=== PATIENT | female | born 1940 | race Caucasian/White ===

== ENCOUNTER 2016-05-20 13:06 | Observation (INO) | payer MEDICARE, OTHER ==
[2016-05-20] MEDS ORDERED: ONDANSETRON 4 MG/2 ML VIAL ONE (13:53)
[2016-05-20] MEDS ORDERED: HYDROmorphone 1 MG/ML SYRINGE ONE (13:53)
[2016-05-20] MEDS ORDERED: SODIUM CHLORIDE 0.9% 1,000 ML IV ONE (13:58)
[2016-05-20] MEDS ORDERED: HYDROmorphone 1 MG/ML SYRINGE IVP STA (14:06)
[2016-05-20] MEDS ORDERED: ONDANSETRON 4 MG/2 ML VIAL IVP STA (14:06)
[2016-05-20] MEDS: IOPAMIDOL-300 100 ML VIAL IVP ONE (14:30)
[2016-05-20] MEDS ORDERED: LIDOCAINE JELLY 2% 5 ML TUBE TOP ONE (18:17)
[2016-05-20] MEDS ORDERED: BENZOCAINE/TETRACAINE/BUTAMBEN SPRAY 56 GM ONE (18:17)
[2016-05-20] MEDS ORDERED: ONDANSETRON 4 MG/2 ML VIAL IVP PRN (19:07)
[2016-05-20] MEDS: HYDROmorphone 1 MG/ML SYRINGE IVP PRN (20:07)
[2016-05-20] MEDS: SODIUM CHLORIDE FLUSH 0.9% 10 ML SYRINGE IVP SCH (20:12)
[2016-05-20] MEDS: LACTATED RINGERS 1,000 ML IV SCH (20:15)
[2016-05-20] MEDS: LORazepam 2 MG/ML SYRINGE IVP PRN (20:34)
[2016-05-21] MEDS: HYDROmorphone 1 MG/ML SYRINGE IVP PRN ×3 (01:17→20:32)
[2016-05-21] MEDS: LACTATED RINGERS 1,000 ML IV SCH ×2 (02:38→19:15)
[2016-05-21] MEDS: LORazepam 2 MG/ML SYRINGE IVP PRN ×2 (02:44→22:09)
[2016-05-21] MEDS: PANTOPRAZOLE 40 MG VIAL IVP SCH (06:11)
[2016-05-21] MEDS: SODIUM CHLORIDE FLUSH 0.9% 10 ML SYRINGE IVP SCH ×3 (06:12→19:16)
[2016-05-21] MEDS ORDERED: IOPAMIDOL-300 100 ML VIAL IVP ONE (09:30)
[2016-05-21] MEDS ORDERED: IOPAMIDOL-300 50 ML VIAL PO ONE (09:35)
[2016-05-21] MEDS: IOPAMIDOL-300 100 ML VIAL IVP ONE (09:36)
[2016-05-21] MEDS: SODIUM CHLORIDE FLUSH 0.9% 10 ML SYRINGE IVP PRN ×2 (09:46→20:33)
[2016-05-21] MEDS ORDERED: LACTATED RINGERS 1,000 ML IV ONE ×2 (11:13→12:20)
[2016-05-21] MEDS ORDERED: ACETAMINOPHEN 1,000 MG/100 ML VIAL IV ONE (11:15)
[2016-05-21] MEDS ORDERED: MIDAZOLAM 2 MG/2 ML VIAL IVP ONE (11:15)
[2016-05-21] MEDS ORDERED: fentaNYL 100 MCG/2 ML VIAL IVP ONE (11:15)
[2016-05-21] MEDS ORDERED: LIDOCAINE-MPF 2% 5 ML VIAL IM ONE (11:15)
[2016-05-21] MEDS ORDERED: ROCURONIUM 50 MG/5 ML VIAL IVP ONE (11:15)
[2016-05-21] MEDS ORDERED: NEOSTIGMINE 1 MG/1 ML 10 ML MDV IVP ONE (11:15)
[2016-05-21] MEDS ORDERED: DEXAMETHASONE 4 MG/ML VIAL IVP ONE (11:15)
[2016-05-21] MEDS ORDERED: ONDANSETRON 4 MG/2 ML VIAL IVP ONE (11:15)
[2016-05-21] MEDS ORDERED: PROPOFOL 200 MG/20 ML VIAL IVP ONE (11:15)
[2016-05-21] MEDS ORDERED: GLYCOPYRROLATE 1 MG/5 ML VIAL IVP ONE (11:15)
[2016-05-21] MEDS ORDERED: SUCCINYLCHOLINE 200 MG/10 ML VIAL IVP ONE (11:15)
[2016-05-21] MEDS ORDERED: BUPIVACAINE 0.25% PF 10 ML VIAL SUBQ ONE ×2 (11:35→12:26)
[2016-05-21] MEDS ORDERED: LIDOCAINE MPF 1%-EPI 1:200000 30 ML VIAL SUBQ ONE ×2 (11:35→12:26)
[2016-05-21] MEDS ORDERED: HYDROmorphone 1 MG/ML SYRINGE ONE (12:44)
[2016-05-21] MEDS ORDERED: A & D OINTMENT 5 GM PACKET TOP ONE (17:02)
[2016-05-22] MEDS: SODIUM CHLORIDE FLUSH 0.9% 10 ML SYRINGE IVP SCH ×3 (03:00→19:50)
[2016-05-22] MEDS: LACTATED RINGERS 1,000 ML IV SCH ×2 (03:00→09:19)
[2016-05-22] MEDS: HYDROmorphone 1 MG/ML SYRINGE IVP PRN (03:14)
[2016-05-22] MEDS: PANTOPRAZOLE 40 MG VIAL IVP SCH (07:01)
[2016-05-22] MEDS ORDERED: KETOROLAC 15 MG/ML VIAL IVP PRN (08:55)
[2016-05-22] MEDS ORDERED: ACETAMINOPHEN 1,000 MG/100 ML 100 ML IV PRN (08:56)
[2016-05-22] MEDS: ENOXAPARIN 40 MG/0.4 ML SYRINGE SUBQ SCH (09:17)
[2016-05-22] MEDS: D5.45NS W/20 MEQ KCL 1,000 ML IV SCH ×2 (09:17→19:44)
[2016-05-22] MEDS: SODIUM CHLORIDE FLUSH 0.9% 10 ML SYRINGE IVP PRN (09:37)
[2016-05-22] MEDS ORDERED: oxyCOD/ACETAMIN 5 MG/325 MG TABLET PO PRN ×2 (20:20→20:37)
[2016-05-22] MEDS ORDERED: LORazepam 0.5 MG TABLET PO PRN (20:33)
[2016-05-23] MEDS: SODIUM CHLORIDE FLUSH 0.9% 10 ML SYRINGE IVP SCH (04:38)
[2016-05-23] MEDS: PANTOPRAZOLE 40 MG VIAL IVP SCH (07:20)
[2016-05-23] MEDS: D5.45NS W/20 MEQ KCL 1,000 ML IV SCH ×2 (10:13→10:15)
[2016-05-23] MEDS: ENOXAPARIN 40 MG/0.4 ML SYRINGE SUBQ SCH (10:13)
== END 2016-05-23 10:54 | disposition home or self-care (01) ==
PROC: 0DN84ZZ Release Small Intestine, Percutaneous Endoscopic Approach (ICD-10-PCS; principal; 2016-05-21 11:00)
DX: K56.5 Intestinal adhesions [bands] with obstruction (postinfection) (principal); M54.9 Dorsalgia, unspecified; G89.29 Other chronic pain; F41.9 Anxiety disorder, unspecified; F32.9 Major depressive disorder, single episode, unspecified; Z79.891 Long term (current) use of opiate analgesic; Z79.899 Other long term (current) drug therapy; Z87.891 Personal history of nicotine dependence; K21.9 Gastro-esophageal reflux disease without esophagitis; K44.9 Diaphragmatic hernia without obstruction or gangrene; M19.90 Unspecified osteoarthritis, unspecified site; Z85.51 Personal history of malignant neoplasm of bladder
CPT/HCPCS: 36415; 44180; 74174; 74177; 80048; 80053; 81003; 83605; 83615; 83690; 84484; 85025; 86850; 86900; 86901; 96361; 96372; 96374; 96375; 96376; 99285; A9270; G0378; J0131; J1170; J1650; J2060; J3490; J7120; Q9967

== ENCOUNTER 2016-09-20 08:36 | Outpatient (CLI) | payer MEDICARE, OTHER | END 2016-09-20 08:37 | disposition home or self-care (01) | LOC: RT 08:36 | PROVIDERS: ATTEND Student in an Organized Health Care Education/Training Program | DX: Z01.810 Encounter for preprocedural cardiovascular examination (principal); K43.9 Ventral hernia without obstruction or gangrene | CPT/HCPCS: 93005 ==

== ENCOUNTER 2016-09-24 06:12 | Inpatient (IN) | payer MEDICARE, OTHER ==
[2016-09-24] MEDS ORDERED: LACTATED RINGERS 1,000 ML IV ONE ×2 (06:41→10:10)
[2016-09-24] MEDS ORDERED: BUPIVACAINE 0.5% PF 30 ML VIAL INFIL ONE ×2 (07:59→09:30)
[2016-09-24] MEDS ORDERED: ePHEDrine 50 MG/ML VIAL IVP ONE (08:30)
[2016-09-24] MEDS ORDERED: MIDAZOLAM 2 MG/2 ML VIAL IVP ONE (08:30)
[2016-09-24] MEDS ORDERED: PROPOFOL 200 MG/20 ML VIAL IVP ONE (08:30)
[2016-09-24] MEDS ORDERED: fentaNYL 100 MCG/2 ML VIAL IVP ONE (08:30)
[2016-09-24] MEDS ORDERED: GLYCOPYRROLATE 1 MG/5 ML VIAL IVP ONE (08:30)
[2016-09-24] MEDS ORDERED: ROCURONIUM 50 MG/5 ML VIAL IVP ONE (08:30)
[2016-09-24] MEDS ORDERED: PHENYLEPHRINE 50 MG/5 ML VIAL IV ONE (08:30)
[2016-09-24] MEDS ORDERED: KETAMINE 500 MG/10 ML VIAL IVP ONE (08:30)
[2016-09-24] MEDS ORDERED: LIDOCAINE-PF 2% 10 ML AMP SUBQ ONE (08:30)
[2016-09-24] MEDS ORDERED: DEXAMETHASONE 4 MG/ML VIAL IVP ONE (08:30)
[2016-09-24] MEDS ORDERED: ceFAZolin 1 GM VIAL IV ONE (08:30)
[2016-09-24] MEDS ORDERED: ONDANSETRON 4 MG/2 ML VIAL IVP ONE (08:30)
[2016-09-24] MEDS ORDERED: SUCCINYLCHOLINE 200 MG/10 ML VIAL IVP ONE (08:30)
[2016-09-24] MEDS ORDERED: BUPIVACAINE 0.5%-EPI 1:200000 PF 30 ML VIAL SUBQ ONE (09:30)
[2016-09-24] MEDS ORDERED: MORPHINE 2 MG/ML SYRINGE IVP PRN (09:33)
[2016-09-24] MEDS ORDERED: SODIUM CHLORIDE FLUSH 0.9% 10 ML SYRINGE IVP PRN (09:33)
[2016-09-24] MEDS ORDERED: ONDANSETRON 4 MG/2 ML VIAL IVP PRN (09:33)
[2016-09-24] MEDS ORDERED: LORazepam 0.5 MG TABLET PO PRN (09:36)
[2016-09-24] MEDS ORDERED: busPIRone 5 MG TABLET PO PRN (09:36)
[2016-09-24] MEDS: fentaNYL 100 MCG/2 ML VIAL ONE ×3 (09:39→09:55)
[2016-09-24] MEDS ORDERED: fentaNYL 100 MCG/2 ML VIAL ONE (09:53)
[2016-09-24] MEDS: LACTATED RINGERS 1,000 ML IV SCH ×2 (11:05→19:27)
[2016-09-24] MEDS: ACETAMINOPHEN 1,000 MG/100 ML 100 ML IV SCH ×3 (11:05→21:39)
--- NOTE | 2016-09-24 12:14 | OPERATIVE REPORT ---
DATE OF SURGERY: 09/24/2016 00:00:00 PREOPERATIVE DIAGNOSIS: Ventral hernia. POSTOPERATIVE DIAGNOSIS: Ventral hernia. NAME OF PROCEDURE: Ventral hernia repair with mesh. SURGEON: Sondra Aiken MD INDICATION FOR PROCEDURE: This is a 75-year-old female who underwent laparoscopic lysis of adhesions from a small-bowel obstruction several months ago. She subsequently developed a ventral hernia and is now being taken for elective ventral hernia repair. FINDINGS: After obtaining informed consent from the patient, she was brought into the operating room and positioned on the operating table in the supine position, taking note of pressure points. She was administered perioperative antibiotics. She was prepped and draped in usual sterile fashion and a time-out was taken according to protocol. A periumbilical incision was created and deepened down towards the hernia sac. The hernia sac was circumferentially dissected from the surrounding fascia. The skin incision had to be extended to approximately 6 cm in order to dissect down to the large ventral hernia. Once complete circumferential dissection was performed down to the level of the fascia and the hernia sac was opened, excess hernia sac was removed. The underlying omentum stuck to the hernia sac was removed carefully with electrocautery. The hernia defect was measured to be 6 cm. A 10 x 15 cm composite Bard mesh was chosen. This was inserted into the abdominal cavity and sutured to the fascia with 8 circumferential #1 Prolene interrupted sutures. The fascia was then closed over the repair with interrupted 0 Prolene sutures. The subcutaneous tissue was closed with 3-0 Vicryl, and skin was closed with 4- 0 Monocryl, and 60 mL of local anesthetic was utilized. ESTIMATED BLOOD LOSS: 10 mL. COMPLICATIONS: None. SPECIMENS: None. JOB #: [id number] EXT JOB #:[id number] MTDTawana
[2016-09-24] MEDS: HYDROcod/ACETAM 5/325 MG TABLET PO PRN ×2 (14:00→21:38)
[2016-09-24] MEDS: SODIUM CHLORIDE FLUSH 0.9% 10 ML SYRINGE IVP SCH ×2 (14:02→22:42)
[2016-09-24] MEDS: KETOROLAC 30 MG/ML VIAL IVP PRN (20:47)
[2016-09-25] MEDS: HYDROcod/ACETAM 5/325 MG TABLET PO PRN ×2 (01:54→06:24)
[2016-09-25] MEDS: ACETAMINOPHEN 1,000 MG/100 ML 100 ML IV SCH (04:47)
[2016-09-25] MEDS: LACTATED RINGERS 1,000 ML IV SCH (04:47)
[2016-09-25] MEDS: SODIUM CHLORIDE FLUSH 0.9% 10 ML SYRINGE IVP SCH (05:13)
[2016-09-25] MEDS: KETOROLAC 30 MG/ML VIAL IVP PRN (08:24)
[2016-09-25 08:27] VITALS: BP 144/84
--- NOTE | 2016-09-25 08:38 | Discharge Plan ---
Discharge Plan Disposition: Home, Self Care Condition: Good Prescriptions: Acetaminophen with Codeine [Acetaminophen-Cod #3 Tablet] 1 each PO Q4HR PRN #45 tablet PRN Reason: Abdominal Pain Docusate Sodium 250Mg Capsule [Colace 250Mg Capsule] 250 mg PO DAILY #60 capsule Diet: Regular Activity Restrictions: Additional Comments (no strenuous activity 6 weeks) Shower Restrictions: Yes (no tub bathing or swimming 1 week) Driving Restrictions: Yes (not while on narcotics) Weight Bearing: Full Weight Instruction Topics: Hernia Surg Umbilical Repair Ch, Hernia Repair Open Dc No Smoking: If you smoke, Please STOP! Call for help. Follow-up with: Марина Paez PA-C [Primary Care Provider] - BETZAIDA TOBIAS MD [Provider Admit Priv/Credential] - 2 Weeks
[2016-09-25] MEDS ORDERED: EZETIMIBE 10 MG TABLET PO SCH (09:00)
[2016-09-25] MEDS ORDERED: SERTRALINE 25 MG TABLET PO SCH (09:00)
[2016-09-25] MEDS ORDERED: MULTIVITAMIN TABLET PO SCH (09:00)
== END 2016-09-25 10:40 | disposition home or self-care (01) | DRG 395 ==
LOC: SDS 06:12 → MS 09:33
PROVIDERS: ADMIT Surgery; ATTEND Surgery
PROC: 0WUF0JZ Supplement Abdominal Wall with Synthetic Substitute, Open Approach (ICD-10-PCS; principal; 2016-09-24 07:30)
DX: K43.2 Incisional hernia without obstruction or gangrene (principal); M19.90 Unspecified osteoarthritis, unspecified site; F32.9 Major depressive disorder, single episode, unspecified; F41.9 Anxiety disorder, unspecified; Z87.891 Personal history of nicotine dependence

== ENCOUNTER 2016-10-15 13:06 | Outpatient (CLI) | payer MEDICARE, OTHER ==
--- NOTE | 2016-10-15 14:09 | Ultrasound Report ---
ULTRASOUND ANTERIOR ABDOMINAL WALL: 10/15/2016 CLINICAL INDICATION: Pain, redness following ventral hernia repair. TECHNIQUE: Real-time scanning was performed with tax representative static images obtained. FINDINGS: Ultrasound of the painful reddened area in the anterior abdominal wall was performed. The re is a complex septated fluid collection, spanning approximately 18 cm craniocaudal x 10 cm transver se x 4 cm in thickness, corresponding to the region of pain and redness. This is immediately subjace nt to the incision for the ventral hernia repair. It appears to reside extraperitoneal on this exami nation. IMPRESSION: COMPLEX SEPTATED FLUID COLLECTION IMMEDIATELY SUBJACENT TO THE INCISION FOR THE VENTRAL HERNIA REPAIR. THIS MAY REPRESENT SEROMA OR ABSCESS. NO DEFINITE RECURRENT HERNIA IS IDENTIFIED. JOB #: [id number] EXT JOB #:[id number]
== END 2016-10-15 13:07 | disposition home or self-care (01) ==
LOC: DI 13:06
PROVIDERS: ATTEND Surgery
DX: K43.9 Ventral hernia without obstruction or gangrene (principal)
CPT/HCPCS: 76705

== ENCOUNTER 2016-10-16 16:00 | Outpatient (CLI) | payer MEDICARE, OTHER | END 2016-10-16 16:01 | disposition home or self-care (01) | LOC: LAB.R 16:00 | PROVIDERS: ATTEND Surgery | DX: K43.9 Ventral hernia without obstruction or gangrene (principal) | CPT/HCPCS: 87070; 87077; 87205 ==

== ENCOUNTER 2016-10-22 09:44 | Observation (INO) | payer MEDICARE, OTHER ==
[2016-10-22 10:16] LABS: BASOPHILS # (AUTO) 0.1 10^3/uL (0.0-0.1); BASOPHILS % (AUTO) 0.9 %; EOSINOPHILS # (AUTO) 0.2 10^3/uL (0.0-0.7); EOSINOPHILS % (AUTO) 3.4 %; HCT - HEMATOCRIT 34.5 % (37.0-47.0); HGB - HEMOGLOBIN 11.6 g/dL (12.0-16.0); LYMPHOCYTES # (AUTO) 1.1 10^3/uL (1.5-3.5); MEAN CORPUSCULAR HEMOGLOBIN 33.9 pg (27.0-31.0); MEAN CORPUSCULAR HGB CONC 33.6 g/dL (32.0-36.0); MEAN CORPUSCULAR VOLUME 100.6 fL (81.0-99.0); MEAN PLATELET VOLUME 6.2 fL (7.9-10.8); MONOCYTES # (AUTO) 0.9 10^3/uL (0.0-1.0); MONOCYTES % (AUTO) 12.6 %; NEUTROPHILS # (AUTO) 4.7 10^3/uL (1.5-6.6); NEUTROPHILS % (AUTO) 67.1 %; RED BLOOD COUNT 3.43 10^6/uL (4.20-5.40); RED CELL DISTRIBUTION WIDTH 12.8 % (12.0-15.0)
--- NOTE | 2016-10-22 10:20 | ED Physician Documentation ---
History of Present Illness - Stated complaint Stated Complaint: POST OP COMPLICATION - Chief complaint Chief Complaint: Abd Pain - Additonal information Additional information: hx from pt 76 female had surgery for "flipped stomach" (per op report lysis of adhesions) May 2016, then developed a ventral hernia which was repaired 09/24/16 subsequently developed infection and seroma is on antibiotics now has had seroma drained twice this AM had bleeding from lower aspect of the incision went to PMD who called surgeon who advised pt come to the ER and surgeon will come see her here no fever Review of Systems Constitutional: denies: Fever GI: reports: Abdominal Pain, Other (bleeding from incision) Endocrine: denies: Easy bruising / bleeding Immunocompromised: denies: Immunocompromised PD PAST MEDICAL HISTORY - Past Medical History Cardiovascular: High cholesterol, Angina Respiratory: None Endocrine/Autoimmune: None GI: GERD, Hiatal hernia, Other : Other HEENT: None Psych: Depression, Anxiety Musculoskeletal: Osteoporosis, Chronic back pain Derm: Other - Past Surgical History Past Surgical History: Yes General: Bowel surgery, Colonoscopy Ortho: Other - Present Medications Home Medications: Ambulatory Orders Medication Instructions Recorded Confirmed Sertraline HCl 37.5 mg PO DAILY 02/12/13 10/22/16 Multivitamin [Theragran] 1 tab PO DAILY 05/21/16 10/22/16 busPIRone [Buspar] 7.5 mg PO BID PRN 05/22/16 10/22/16 Acetaminophen with Codeine 1 each PO Q4HR PRN #45 tablet 09/25/16 10/22/16 [Acetaminophen-Cod #3 Tablet] Docusate Sodium 250Mg Capsule 250 mg PO DAILY #60 capsule 09/25/16 10/22/16 [Colace 250Mg Capsule] Ezetimibe [Zetia] 10 mg PO DAILY tablet 09/25/16 10/22/16 LORazepam [Ativan] 0.5 mg PO BID PRN #0 tablet 09/25/16 10/22/16 - Allergies Allergies/Adverse Reactions: Allergies Allergy/AdvReac Type Severity Reaction Status Date / Time codeine Allergy Unknown Verified 10/22/16 10:04 morphine Allergy Nausea Verified 10/22/16 10:04 Sulfa (Sulfonamide Allergy Headache Verified 10/22/16 10:04 Antibiotics) caffeine AdvReac Anxiety Verified 10/22/16 10:04 - Social History Does the pt smoke?: No Smoking Status: Former smoker Does the pt drink ETOH?: Yes Does the pt have substance abuse?: No - POLST Patient has POLST: No PD ED PE NORMAL - Vitals Vital signs reviewed: Yes - Neck Neck: Supple, no meningeal sign - Cardiac Cardiac: RRR - Respiratory Respiratory: No respiratory distress, Clear bilaterally - Abdomen Abdomen: Other (midline incision with mild patchy erythema, no sig swelling, some dark slightly serous mostly bloody fluid drains with gentle palpation, mild TTP) - Derm Derm: Other (see abd exam) - Neuro Neuro: Alert and oriented X 3 Results - Vitals Vitals: Vital Signs - 24 hr 10/22/16 09:50 Temperature 36.7 C Heart Rate 79 Respiratory 16 Rate Blood Pressure 137/81 H O2 Saturation 99 Oxygen O2 Source Room air - Labs Labs: Laboratory Tests 10/22/16 10:10 WBC 7.0 RBC 3.43 L Hgb 11.6 L Hct 34.5 L MCV 100.6 H MCH 33.9 H MCHC 33.6 RDW 12.8 Plt Count 518 H MPV 6.2 L Neut # 4.7 Lymph # 1.1 L [place] # 0.9 Eos # 0.2 Baso # 0.1 Absolute Nucleated RBC 0.00 Nucleated RBCs 0.0 PD MEDICAL DECISION MAKING - ED course ED course: seen by Dr Aiken in [facility] and will admit obs Departure - Departure Disposition: ED Place in Observation Clinical Impression: Post op infection Qualifiers: Encounter type: initial encounter Qualified Code(s): T81.4XXA - Infection following a procedure, initial encounter
[2016-10-22] MEDS ORDERED: PIPERACILLIN/TAZOBACTAM 3.375 GM in SODIUM CHLORIDE 0.9% MINIBAG 100 ML IV STA ×2 (10:28→11:47)
[2016-10-22] MEDS ORDERED: LORazepam 0.5 MG TABLET PO PRN (11:47)
[2016-10-22] MEDS ORDERED: busPIRone 5 MG TABLET PO PRN (11:47)
[2016-10-22] MEDS: SODIUM CHLORIDE FLUSH 0.9% 10 ML SYRINGE IVP SCH ×2 (14:40→16:05)
[2016-10-22] MEDS ORDERED: PIPERACILLIN/TAZOBACTAM 3.375 GM in SODIUM CHLORIDE 0.9% MINIBAG 100 ML IV SCH (16:00)
[2016-10-22] MEDS: SODIUM CHLORIDE FLUSH 0.9% 10 ML SYRINGE IVP PRN ×3 (18:13→22:41)
[2016-10-22] MEDS: PIPERACILLIN/TAZOBACTAM 3.375 GM in SODIUM CHLORIDE 0.9% MINIBAG 100 ML IV SCH (18:14)
[2016-10-23] MEDS ORDERED: IBUPROFEN 400 MG TABLET PO PRN (00:12)
[2016-10-23] MEDS: PIPERACILLIN/TAZOBACTAM 3.375 GM in SODIUM CHLORIDE 0.9% MINIBAG 100 ML IV SCH (01:58)
[2016-10-23] MEDS: SODIUM CHLORIDE FLUSH 0.9% 10 ML SYRINGE IVP PRN (01:58)
[2016-10-23] MEDS: SODIUM CHLORIDE FLUSH 0.9% 10 ML SYRINGE IVP SCH (05:31)
[2016-10-23 05:35] LABS: BASOPHILS % (AUTO) 0.8 %; EOSINOPHILS # (AUTO) 0.5 10^3/uL (0.0-0.7); EOSINOPHILS % (AUTO) 8.3 %; HCT - HEMATOCRIT 34.4 % (37.0-47.0); HGB - HEMOGLOBIN 11.5 g/dL (12.0-16.0); LYMPHOCYTES # (AUTO) 1.7 10^3/uL (1.5-3.5); LYMPHOCYTES % (AUTO) 30.8 %; MEAN CORPUSCULAR HEMOGLOBIN 34.2 pg (27.0-31.0); MEAN CORPUSCULAR HGB CONC 33.5 g/dL (32.0-36.0); MEAN CORPUSCULAR VOLUME 102.2 fL (81.0-99.0); MEAN PLATELET VOLUME 6.4 fL (7.9-10.8); MONOCYTES # (AUTO) 0.8 10^3/uL (0.0-1.0); MONOCYTES % (AUTO) 15.1 %; NEUTROPHILS # (AUTO) 2.5 10^3/uL (1.5-6.6); RED BLOOD COUNT 3.37 10^6/uL (4.20-5.40); RED CELL DISTRIBUTION WIDTH 12.8 % (12.0-15.0); UNCORRECTED WHITE BLOOD COUNT 5.6 x10^3/uL; WHITE BLOOD COUNT 5.6 x10^3/uL (4.8-10.8)
[2016-10-23 08:44] VITALS: BP 107/71
[2016-10-23] MEDS ORDERED: POLYETHYLENE GLYCOL 3350 17 GM PACKET PO SCH (09:00)
[2016-10-23] MEDS ORDERED: MULTIVITAMIN TABLET PO SCH (09:00)
[2016-10-23] MEDS ORDERED: EZETIMIBE 10 MG TABLET PO SCH (09:00)
[2016-10-23] MEDS ORDERED: SERTRALINE 25 MG TABLET PO SCH (09:00)
--- NOTE | 2016-10-23 09:14 | HISTORY & PHYSICAL EXAMINATION ---
Chief Complaint - Chief Complaint Chief Complaint: draining wound History of Present Illness - Admitted From Admitted From:: ER - History of Present Illness HPI Comment/Other: states that she began draining from her abdominal wound. Drainage is serosanguinous. Started this am. Denies fevers or chills. Denies dizziness or lightheadedness. Review of Systems - Constitutional Constitutional: denies: Fatigue - Gastrointestinal Gastrointestinal: denies: Abdominal pain - Integumentary Integumentary: denies: Pruritis - All Other Systems All Other Systems: denies: Reviewed and negative History - Past Medical History Cardiovascular: reports: High cholesterol, Angina Respiratory: reports: None Neuro: reports: None Endocrine/Autoimmune: reports: None GI: reports: GERD, Hiatal hernia, Other : reports: Other HEENT: reports: None Psych: reports: Depression, Anxiety Musculoskeletal: reports: Osteoporosis, Chronic back pain Derm: reports: Other MRSA Hx?: No Other Past Medical History: SBO, IBS - Past Surgical History General: reports: Bowel surgery, Colonoscopy Ortho: reports: Other - POLST Patient has POLST: No Meds/Allgy - Home Medications Home Medications: Ambulatory Orders Medication Instructions Recorded Confirmed Sertraline HCl 37.5 mg PO DAILY 02/12/13 10/22/16 Multivitamin [Theragran] 1 tab PO DAILY 05/21/16 10/22/16 busPIRone [Buspar] 7.5 mg PO BID PRN 05/22/16 10/22/16 Acetaminophen with Codeine 1 each PO Q4HR PRN #45 tablet 09/25/16 10/22/16 [Acetaminophen-Cod #3 Tablet] Docusate Sodium 250Mg Capsule 250 mg PO DAILY #60 capsule 09/25/16 10/22/16 [Colace 250Mg Capsule] Ezetimibe [Zetia] 10 mg PO DAILY tablet 09/25/16 10/22/16 LORazepam [Ativan] 0.5 mg PO BID PRN #0 tablet 09/25/16 10/22/16 - Allergies Allergies/Adverse Reactions: Allergies Allergy/AdvReac Type Severity Reaction Status Date / Time codeine Allergy Unknown Verified 10/22/16 10:04 morphine Allergy Nausea Verified 10/22/16 10:04 Sulfa (Sulfonamide Allergy Headache Verified 10/22/16 10:04 Antibiotics) caffeine AdvReac Anxiety Verified 10/22/16 10:04 Exam - Vital Signs Vital Signs: Vital Signs x48h Temp Pulse Resp BP Pulse Ox 10/23/16 08:43 36.8 C 64 16 107/71 96 10/23/16 06:43 64 103/67 10/23/16 05:40 36.6 C 68 16 93/61 98 - Physical Exam General Appearance: positive: No acute distress Eyes Bilateral: positive: Normal inspection Respiratory: positive: Chest non-tender, No respiratory distress Cardiovascular: positive: Regular rate & rhythm Abdomen: positive: Other (inferior aspect of wound is slightly open and draining serosanguinous fluid. No surrounding erythema. abdomen is soft and non- distended) Extremities: positive: Non-tender, No pedal edema Neurologic/Psychiatric: positive: Oriented x3 Conclusion/Plan - Lab Results Lab results reviewed: Yes Fish Bones: 10/23/16 05:04 - Other Other Results/Comments: Will monitor for signs of infection and prophylactically place on IV antibiotics. No overt signs of infection or sepsis, however, given the placement of mesh concern for mesh infection warrants antibiotic usage. Regular diet resume home medications obtain CBC in am. Issues/Core Measures - Anticipated LOS Anticipated Stay Length: Less than 2 midnights - DVT/VTE - Prophylaxis VTE/DVT Device ordered at admit?: Yes VTE/DVT Prophylaxis med ordered at admit?: No Not Ordered - Medical Reason: Not indicated - Stroke - Rehab Assessment Rehab services assessment to be ordered?: No
--- NOTE | 2016-10-23 09:20 | Discharge Plan ---
Discharge Plan Disposition: 01 Home, Self Care Condition: Good Diet: Regular Activity Restrictions: nothing strenuous Shower Restrictions: Yes (no tub bathing and no swimming) Driving Restrictions: No Weight Bearing: Full Weight Instruction Topics: ED Seroma Post Op Additional Instructions or Follow Up instructions: place 4 x 4 over wound and check twice daily for saturation. Change dressing as often as it becomes saturated and at least once per day. Call MD for redness around incision, yellow drainage from incision, fevers, chills. No Smoking: If you smoke, Please STOP! Call for help. Follow-up with: BETZAIDA TOBIAS MD [Provider Admit Priv/Credential] - ( Thursday 10/26 at 1: 15)
--- NOTE | 2016-10-31 20:36 | DISCHARGE SUMMARY ---
DATE OF ADMISSION: 10/22/2016 DATE OF DISCHARGE: 10/23/2016 REASON FOR ADMISSION: Abdominal wall seroma. HISTORY OF PRESENT ILLNESS: This is a 76-year-old female who underwent a ventral hernia repair with m es 1 week ago and subsequently developed a seroma. She was seen for this in the office and percutane ous drainage was performed. She was prophylactically placed on antibiotics given the fact that mesh w as placed at the time of surgery. She was doing well and then developed quite a bit of drainage from the incision. She was seen by her PCP who referred her to the Emergency Department. By my evaluation of the patient she was noted to be afebrile with a normal white blood cell count but there was a cons iderable amount of drainage from the inferior aspect of her wound. This was noted to be serosanguineo us. Due to concern for a possible infection the patient was admitted for observation and placed on IV antibiotics. Serial abdominal exams were performed. She remained afebrile with no evidence of active infection on hospital day #1. She was discharged home on a course of oral antibiotics with followup with me in the office in 2 days. PHYSICAL EXAM ON DISCHARGE: VITAL SIGNS: Temperature 36.8, blood pressure 107/71, heart rate 64, respiratory rate 16, O2 saturati on 96% on room air. The patient is awake, alert, oriented x3 in no acute distress. She is of average build. CARDIOVASCULAR: Regular rate and rhythm. LUNGS: Clear to auscultation bilaterally. No rhonchi or wheezing. ABDOMEN: Soft and nondistended. Incisional scar is present with no surrounding erythema. Palpation of the abdomen does not produce any further drainage. EXTREMITIES: Nonedematous. Prescription for Bactrim provided to the patient upon discharge with instructions to followup should she develop any signs of infection. JOB #: [id number] EXT JOB #:[id number]
== END 2016-10-23 11:14 | disposition home or self-care (01) ==
LOC: ED 09:44 → MS 11:46
PROVIDERS: ADMIT Surgery; ATTEND Surgery
DX: L76.34 Postprocedural seroma of skin and subcutaneous tissue following other procedure (principal); Y83.8 Other surgical procedures as the cause of abnormal reaction of the patient, or of later complication, without mention of misadventure at the time of the procedure; F41.9 Anxiety disorder, unspecified; F32.9 Major depressive disorder, single episode, unspecified; E78.00 Pure hypercholesterolemia, unspecified; Z87.891 Personal history of nicotine dependence; M81.0 Age-related osteoporosis without current pathological fracture; M54.89 Other dorsalgia; G89.29 Other chronic pain
CPT/HCPCS: 36415; 85025; 96365; 96366; 99283; 99284; A9270; G0378; 99282

== ENCOUNTER 2017-01-09 14:18 | Outpatient (CLI) | payer MEDICARE, OTHER ==
[2017-01-09 20:00] LABS: BASOPHILS # (AUTO) 0.1 10^3/uL (0.0-0.1); BASOPHILS % (AUTO) 1.2 %; EOSINOPHILS # (AUTO) 0.5 10^3/uL (0.0-0.7); HCT - HEMATOCRIT 40.2 % (37.0-47.0); HGB - HEMOGLOBIN 13.1 g/dL (12.0-16.0); LYMPHOCYTES # (AUTO) 1.9 10^3/uL (1.5-3.5); LYMPHOCYTES % (AUTO) 44.2 %; MEAN CORPUSCULAR HEMOGLOBIN 34.3 pg (27.0-31.0); MEAN CORPUSCULAR HGB CONC 32.7 g/dL (32.0-36.0); MEAN PLATELET VOLUME 8.2 fL (7.9-10.8); MONOCYTES # (AUTO) 0.4 10^3/uL (0.0-1.0); MONOCYTES % (AUTO) 8.9 %; NEUTROPHILS # (AUTO) 1.5 10^3/uL (1.5-6.6); NEUTROPHILS % (AUTO) 34.7 %; RED BLOOD COUNT 3.83 10^6/uL (4.20-5.40); RED CELL DISTRIBUTION WIDTH 14.5 % (12.0-15.0); UNCORRECTED WHITE BLOOD COUNT 4.4 x10^3/uL; WHITE BLOOD COUNT 4.4 x10^3/uL (4.8-10.8)
[2017-01-09 20:14] LABS: ALBUMIN/GLOBULIN RATIO 1.5 (1.0-2.2); BILIRUBIN,TOTAL 0.2 mg/dL (0.2-1.0); BUN - BLOOD UREA NITROGEN 22 mg/dL (6-20); CALCIUM 8.6 mg/dL (8.5-10.3); CARBON DIOXIDE - CO2 24 mmol/L (21-32); CHLORIDE 103 mmol/L (101-111); CHOL/HDL RATIO 2.7 (<4.4); CHOLESTEROL 196 mg/dL; CREATININE 0.8 mg/dL (0.4-1.0); GFR - MDRD 70 (>89); GLUCOSE 69 mg/dL (70-100); HDL CHOLESTEROL 73 mg/dL; LDL/HDL RATIO 1.5 (<4.4); SODIUM 136 mmol/L (135-145); TOTAL PROTEIN 6.5 g/dL (6.7-8.2); TRIGLYCERIDES 79 mg/dL; VLDL CHOLESTEROL 16 mg/dL
== END 2017-01-09 14:19 | disposition home or self-care (01) ==
LOC: LAB.R 14:18
PROVIDERS: ATTEND Physician Assistant Medical
DX: Z79.899 Other long term (current) drug therapy (principal); M81.0 Age-related osteoporosis without current pathological fracture; G47.00 Insomnia, unspecified; E78.2 Mixed hyperlipidemia; F32.9 Major depressive disorder, single episode, unspecified; Z85.51 Personal history of malignant neoplasm of bladder
CPT/HCPCS: 80053; 80061; 82306; 84443; 85025

== ENCOUNTER 2017-02-18 09:05 | Outpatient (CLI) | payer MEDICARE, OTHER ==
--- NOTE | 2017-02-19 19:18 | Mammography Report ---
DIGITAL SCREENING MAMMOGRAM: 02/18/2017 CLINICAL INDICATION: A 76-year-old with history of benign biopsy for screening. COMPARISON: 01/2016, 11/2014, 10/2013, 12/2011, 10/2010, 10/2009. The breasts again demonstrate heterogeneously dense fibroglandular parenchyma bilaterally. Coarse, t ypically benign calcifications are present. No suspicious masses, clustered microcalcifications, or regions of architectural distortion are identified. IMPRESSION: BENIGN FINDINGS. RECOMMENDATION: ROUTINE ANNUAL SCREENING UNLESS OTHERWISE CLINICALLY INDICATED. BIRADS CATEGORY: 2, BENIGN FINDINGS. STANDARD QUALIFYING STATEMENTS 1. This examination was reviewed with the aid of Computed-Aided Detection (CAD). 2. A negative or benign imaging report should not delay biopsy if clinically suspicious findings are present. Consider surgical consultation if warranted. More than 5% of cancers are not identified b y imaging. 3. Dense breasts may obscure an underlying neoplasm. JOB #: [id number] EXT JOB #:[id number]
== END 2017-02-18 09:06 | disposition home or self-care (01) ==
LOC: DI 09:05
PROVIDERS: ATTEND Physician Assistant Medical
DX: Z12.31 Encounter for screening mammogram for malignant neoplasm of breast (principal)
CPT/HCPCS: 77067

== ENCOUNTER 2018-02-12 08:07 | Outpatient (CLI) | payer MEDICARE, OTHER ==
[2018-02-12 16:18] LABS: BASOPHILS % (AUTO) 0.8 %; EOSINOPHILS # (AUTO) 0.7 10^3/uL (0.0-0.7); EOSINOPHILS % (AUTO) 14.3 %; HGB - HEMOGLOBIN 12.4 g/dL (12.0-16.0); LYMPHOCYTES # (AUTO) 2.2 10^3/uL (1.5-3.5); MEAN CORPUSCULAR HEMOGLOBIN 34.3 pg (27.0-31.0); MEAN CORPUSCULAR HGB CONC 32.8 g/dL (32.0-36.0); MEAN CORPUSCULAR VOLUME 104.4 fL (81.0-99.0); MEAN PLATELET VOLUME 8.2 fL (7.9-10.8); MONOCYTES # (AUTO) 0.3 10^3/uL (0.0-1.0); MONOCYTES % (AUTO) 6.8 %; NEUTROPHILS # (AUTO) 1.8 10^3/uL (1.5-6.6); NEUTROPHILS % (AUTO) 35.1 %; PLT - PLATELET COUNT 313 10^3/uL (130-450); RED BLOOD COUNT 3.62 10^6/uL (4.20-5.40); RED CELL DISTRIBUTION WIDTH 13.5 % (12.0-15.0); WHITE BLOOD COUNT 5.1 x10^3/uL (4.8-10.8)
[2018-02-12 16:23] LABS: ALBUMIN 3.7 g/dL (3.2-5.5); ALBUMIN/GLOBULIN RATIO 1.4 (1.0-2.2); ALKALINE PHOSPHATASE 56 IU/L (42-121); ALT ALANINE AMINOTRANSFERASE 21 IU/L (10-60); AST ASPARTATE AMINOTRANSFERASE 25 IU/L (10-42); BILIRUBIN,TOTAL 0.7 mg/dL (0.2-1.0); BUN - BLOOD UREA NITROGEN 23 mg/dL (6-20); CALCIUM 8.5 mg/dL (8.5-10.3); CARBON DIOXIDE - CO2 28 mmol/L (21-32); CHLORIDE 105 mmol/L (101-111); CHOL/HDL RATIO 2.5 (<4.4); CHOLESTEROL 204 mg/dL; CREATININE 0.8 mg/dL (0.4-1.0); GFR - MDRD 70 (>89); GLUCOSE 84 mg/dL (70-100); HDL CHOLESTEROL 81 mg/dL; LDL CHOLESTEROL,CALCULATED 112 mg/dL; LDL/HDL RATIO 1.4 (<4.4); SODIUM 138 mmol/L (135-145); TOTAL PROTEIN 6.3 g/dL (6.7-8.2); VLDL CHOLESTEROL 11 mg/dL
== END 2018-02-12 08:08 ==
LOC: LAB.R 08:07
PROVIDERS: ATTEND Physician Assistant Medical
DX: M81.0 Age-related osteoporosis without current pathological fracture (principal); Z79.899 Other long term (current) drug therapy; D75.89 Other specified diseases of blood and blood-forming organs; E78.2 Mixed hyperlipidemia; F32.9 Major depressive disorder, single episode, unspecified; F41.1 Generalized anxiety disorder
CPT/HCPCS: 80053; 80061; 82306; 83721; 84443; 85025

== ENCOUNTER 2018-02-19 08:00 | Outpatient (CLI) | payer MEDICARE, OTHER ==
[2018-02-19 19:46] LABS: MEAN RETIC VALUE 126.1; RED BLOOD COUNT 3.99 10^6/uL (4.20-5.40)
== END 2018-02-19 08:01 | disposition home or self-care (01) ==
LOC: LAB.R 08:00
PROVIDERS: ATTEND Physician Assistant Medical
DX: D75.89 Other specified diseases of blood and blood-forming organs (principal)
CPT/HCPCS: 82607; 83010; 85044; 86880

== ENCOUNTER 2018-03-26 08:03 | Outpatient (CLI) | payer MEDICARE, OTHER ==
--- NOTE | 2018-03-28 08:54 | Mammography Report ---
Reason: SCREENING MAMMO Procedure Date: 03/26/2018 Accession Number: [id number] / [id number] Procedure: DULCE - Screening Mammo w/Yair CPT Code: FULL RESULT: EXAM: Screening Mammo w/Yair DATE: 03/26/2018 9:47 AM CLINICAL HISTORY: 77-year-old female with history of biopsy performed in [place] in the presents for screening. TECHNIQUE: Bilateral CC and MLO views were obtained. COMPARISON: 02/18/2017, 02/02/2016, 11/29/2014. FINDINGS: The breasts demonstrate heterogeneously dense fibroglandular parenchyma bilaterally. Typically benign vascular calcifications are identified bilaterally. No suspicious masses, clustered microcalcifications, or regions of architectural distortion are identified. IMPRESSION: Benign findings RECOMMENDATION: Routine annual screening unless otherwise clinically indicated. BIRADS CATEGORY 2: Benign findings STANDARD QUALIFYING STATEMENTS: 1. This examination was not reviewed with the aid of Computer-Aided Detection (CAD). 2. A negative or benign imaging report should not delay biopsy if clinically suspicious findings are present. Consider surgical consultation if warranted. More than 5% of cancers are not identified by imaging. 3. Dense breasts may obscure an underlying neoplasm. 4. This examination was reviewed with the aid of 3D breast imaging (tomosynthesis).
== END 2018-03-26 08:04 | disposition home or self-care (01) ==
LOC: DI 08:03
PROVIDERS: ATTEND Physician Assistant Medical
DX: Z12.31 Encounter for screening mammogram for malignant neoplasm of breast (principal); Z80.3 Family history of malignant neoplasm of breast
CPT/HCPCS: 77063; 77067

== ENCOUNTER 2018-04-02 09:31 | Outpatient (CLI) | payer MEDICARE, OTHER ==
--- NOTE | 2018-04-03 09:20 | DEXA Report ---
Reason: OSTEOPOROSIS, SCREENING MAMMO Procedure Date: 04/02/2018 Accession Number: [id number] / [id number] Procedure: DEX - Dexa Spine and/or Hip CPT Code: FULL RESULT: EXAM: Dexa Spine and/or Hip, Dexa Forearm DATE: 04/02/2018 10:21 AM CLINICAL HISTORY: OSTEOPOROSIS, SCREENING MAMMO TECHNIQUE: Dual energy x-ray absorptiometry (DXA) was performed on a [employer] System. Regions measured are the AP Spine, femoral neck, and if needed forearm. COMPARISON: None. In accordance with the International Society for Clinical Densitometry (ISCD) guidelines, data from previous exams may be reanalyzed using current recommendations and techniques. This is done to allow a more accurate basis for comparison with the current study. FINDINGS: The data for the hip is as follows: BMD (g/cm/cm) T-SCORE Z-SCORE REGION Neck 0.780 -1.9 0.2 TOTAL 0.787 -1.7 0.2 NOTE: The femoral neck or total proximal femur, whichever is lowest, is used for classification. The data for the left forearm is as follows: BMD (g/cm/cm) T-SCORE Z-SCORE REGION 1/3 0.639 -2.7 -0.2 NOTE: The 33% radius of the nondominant forearm is used for classification. IMPRESSION: THE WHO CLASSIFICATION BASED ON THE INTERNATIONAL REFERENCE STANDARD IS OSTEOPOROSIS. THE FRACTURE RISK IS HIGH. RECOMMENDATION: Patients with diagnosis of osteoporosis or osteopenia should have regular bone mineral density assessment. For those eligible for Medicare, routine testing is allowed once every 2 years. Testing frequency can be increased for patients who have rapidly progressing disease or for those who are receiving medical therapy to restore bone mass. COMMENT: World Health Organization (WHO) definitions for osteoporosis and osteopenia: NORMAL BMD: T-score at -1.0 or higher, fracture risk is low OSTEOPENIA BMD: T-score between -1.0 and -2.5, fracture risk is increased. OSTEOPOROSIS BMD: T-score at -2.5 or lower, fracture risk is high. National Osteoporosis Foundation recommends: 1. Obtain adequate dietary calcium (at least 1200 mg per day) and vitamin D (400-800 international units per day). 2. Participate, as appropriate, in regular weightbearing and muscle-strengthening exercise. 3. Avoid tobacco use and reduce alcohol and caffeine intake. 4. For more detailed information see the website at www.NOF.org.
--- NOTE | 2018-04-03 09:20 | DEXA Report ---
Reason: OSTEOPOROSIS, SCREENING MAMMO Procedure Date: 04/02/2018 Accession Number: [id number] / [id number] Procedure: DEX - Dexa Forearm CPT Code: FULL RESULT: EXAM: Dexa Spine and/or Hip, Dexa Forearm DATE: 04/02/2018 10:21 AM CLINICAL HISTORY: OSTEOPOROSIS, SCREENING MAMMO TECHNIQUE: Dual energy x-ray absorptiometry (DXA) was performed on a [employer] System. Regions measured are the AP Spine, femoral neck, and if needed forearm. COMPARISON: None. In accordance with the International Society for Clinical Densitometry (ISCD) guidelines, data from previous exams may be reanalyzed using current recommendations and techniques. This is done to allow a more accurate basis for comparison with the current study. FINDINGS: The data for the hip is as follows: BMD (g/cm/cm) T-SCORE Z-SCORE REGION Neck 0.780 -1.9 0.2 TOTAL 0.787 -1.7 0.2 NOTE: The femoral neck or total proximal femur, whichever is lowest, is used for classification. The data for the left forearm is as follows: BMD (g/cm/cm) T-SCORE Z-SCORE REGION 1/3 0.639 -2.7 -0.2 NOTE: The 33% radius of the nondominant forearm is used for classification. IMPRESSION: THE WHO CLASSIFICATION BASED ON THE INTERNATIONAL REFERENCE STANDARD IS OSTEOPOROSIS. THE FRACTURE RISK IS HIGH. RECOMMENDATION: Patients with diagnosis of osteoporosis or osteopenia should have regular bone mineral density assessment. For those eligible for Medicare, routine testing is allowed once every 2 years. Testing frequency can be increased for patients who have rapidly progressing disease or for those who are receiving medical therapy to restore bone mass. COMMENT: World Health Organization (WHO) definitions for osteoporosis and osteopenia: NORMAL BMD: T-score at -1.0 or higher, fracture risk is low OSTEOPENIA BMD: T-score between -1.0 and -2.5, fracture risk is increased. OSTEOPOROSIS BMD: T-score at -2.5 or lower, fracture risk is high. National Osteoporosis Foundation recommends: 1. Obtain adequate dietary calcium (at least 1200 mg per day) and vitamin D (400-800 international units per day). 2. Participate, as appropriate, in regular weightbearing and muscle-strengthening exercise. 3. Avoid tobacco use and reduce alcohol and caffeine intake. 4. For more detailed information see the website at www.NOF.org.
== END 2018-04-02 09:32 | disposition home or self-care (01) ==
LOC: DI 09:31
PROVIDERS: ATTEND Physician Assistant Medical
DX: M81.0 Age-related osteoporosis without current pathological fracture (principal); Z78.0 Asymptomatic menopausal state
CPT/HCPCS: 77080; 77081

== ENCOUNTER 2018-09-23 10:06 | Outpatient (CLI) | payer MEDICARE, OTHER ==
--- NOTE | 2018-09-23 13:22 | Ultrasound Report ---
Reason: VENTRAL HERNIA Procedure Date: 09/23/2018 Accession Number: [id number] / [id number] Procedure: US - Abdomen Limited CPT Code: FULL RESULT: EXAM: ABDOMEN ULTRASOUND LIMITED EXAM DATE: 09/23/2018 10:51 AM. CLINICAL HISTORY: Ventral hernia. COMPARISON: ABDOMEN LIMITED 10/15/2016 1:12 PM ABDOMEN/PELVIS W/ 05/21/2016 9:23 AM. TECHNIQUE: Real-time scanning was performed with static images obtained. FINDINGS: The area of concern of the lower anterior abdominal wall was interrogated with grayscale and limited color Doppler ultrasound with and without Valsalva maneuver. No hernia or other abnormalities identified. IMPRESSION: No hernia is detected. RADIA
== END 2018-09-23 10:07 | disposition home or self-care (01) ==
LOC: DI 10:06
PROVIDERS: ATTEND Nurse Practitioner
DX: K43.9 Ventral hernia without obstruction or gangrene (principal)
CPT/HCPCS: 76705

== ENCOUNTER 2019-05-13 08:14 | Outpatient (CLI) | payer MEDICARE, OTHER ==
[2019-05-13 08:50] LABS: BASOPHILS # (AUTO) 0.1 10^3/uL (0.0-0.1); BASOPHILS % (AUTO) 0.9 %; EOSINOPHILS # (AUTO) 0.4 10^3/uL (0.0-0.7); EOSINOPHILS % (AUTO) 5.6 %; HGB - HEMOGLOBIN 14.1 g/dL (12.0-16.0); LYMPHOCYTES # (AUTO) 1.6 10^3/uL (1.5-3.5); LYMPHOCYTES % (AUTO) 25.5 %; MEAN CORPUSCULAR HEMOGLOBIN 34.6 pg (27.0-31.0); MEAN CORPUSCULAR HGB CONC 32.6 g/dL (32.0-36.0); MEAN CORPUSCULAR VOLUME 106.4 fL (81.0-99.0); MEAN PLATELET VOLUME 9.5 fL (7.9-10.8); MONOCYTES # (AUTO) 0.5 10^3/uL (0.0-1.0); MONOCYTES % (AUTO) 7.7 %; NEUTROPHILS # (AUTO) 3.8 10^3/uL (1.5-6.6); PLT - PLATELET COUNT 314 10^3/uL (130-450); RED BLOOD COUNT 4.07 10^6/uL (4.20-5.40); RED CELL DISTRIBUTION WIDTH 13.5 % (12.0-15.0); WHITE BLOOD COUNT 6.4 x10^3/uL (4.8-10.8)
[2019-05-13 09:11] LABS: ALBUMIN 4.2 g/dL (3.2-5.5); ALBUMIN/GLOBULIN RATIO 1.5 (1.0-2.2); ALKALINE PHOSPHATASE 47 IU/L (42-121); ALT ALANINE AMINOTRANSFERASE 21 IU/L (10-60); AST ASPARTATE AMINOTRANSFERASE 25 IU/L (10-42); BILIRUBIN,TOTAL 0.6 mg/dL (0.2-1.0); BUN - BLOOD UREA NITROGEN 16 mg/dL (6-20); CALCIUM 8.9 mg/dL (8.5-10.3); CARBON DIOXIDE - CO2 27 mmol/L (21-32); CHLORIDE 103 mmol/L (101-111); CHOL/HDL RATIO 2.6 (<4.4); CHOLESTEROL 214 mg/dL; CREATININE 0.9 mg/dL (0.4-1.0); GFR - MDRD 61 (>89); GLUCOSE 100 mg/dL (70-100); HDL CHOLESTEROL 81 mg/dL; LDL CHOLESTEROL,CALCULATED 123 mg/dL; LDL/HDL RATIO 1.5 (<4.4); SODIUM 139 mmol/L (135-145); VLDL CHOLESTEROL 10 mg/dL
[2019-05-13 09:18] LABS: HB2 TOTAL 14.3 g/dL; HEMOGLOBIN A1C 0.57 g/dL; HEMOGLOBIN A1C % 5.8 % (4.6-6.2)
== END 2019-05-13 08:15 | disposition home or self-care (01) ==
LOC: LAB 08:14
PROVIDERS: ATTEND Family Medicine
DX: E66.3 Overweight (principal); Z79.899 Other long term (current) drug therapy; D75.89 Other specified diseases of blood and blood-forming organs; M15.9 Polyosteoarthritis, unspecified; K58.9 Irritable bowel syndrome, unspecified; E78.2 Mixed hyperlipidemia; Z85.51 Personal history of malignant neoplasm of bladder
CPT/HCPCS: 36415; 80053; 80061; 83036; 83721; 85025

== ENCOUNTER 2020-03-07 06:49 | Outpatient (CLI) | payer MEDICARE, OTHER ==
--- NOTE | 2020-03-07 09:23 | Ultrasound Report ---
PROCEDURE: Abdomen Complete INDICATIONS: ABD PAIN,OTHER INTRA-ABDOMINAL AND PELVIC SWELLING TECHNIQUE: Real-time scanning was performed of the abdominal and retroperitoneal organs, with image documentatio n. COMPARISON: Prior limited abdominal ultrasound 09/23/2018. FINDINGS: Liver: Liver is normal in size and homogeneous in echotexture, mildly echogenic consistent with fatt y infiltration. Gallbladder: The gallbladder appears normal Biliary ducts: Intrahepatic bile ducts are non-dilated. Extrahepatic bile duct caliber measures 5.8 mm. Normal is 6-7 mm or less in diameter, or 10 mm or less post-cholecystectomy. Pancreas: Visualized portions of the pancreas are sonographically normal. Spleen: Spleen is normal in size and homogeneous in echotexture. Kidneys: Kidneys are normal in size and echotexture. Right kidney measures 9.0 cm long; left kidney measures 9.9 cm long. No hydronephrosis or nephrolithiasis. No solid masses. Extrarenal pelvis on the right. Aorta: Visualized aorta is normal in caliber at less than 3 cm. Iliacs: Proximal common iliac arteries are normal in caliber at less than 2.5 cm. IVC: Intrahepatic inferior vena cava is patent. Miscellaneous: No free abdominal fluid. IMPRESSION: Mild fatty infiltration within the liver. A definite source of abdominal pain and pelvic swelling is not identified. Depending on the clinical status follow-up by CT scanning may become necessary. Reviewed by: Nathaniel Salas MD on 03/07/2020 9:22 AM [facility] Approved by: Nathaniel Salas MD on 03/07/2020 9:22 AM [facility] Station ID: [id number]
--- NOTE | 2020-03-07 17:43 | Ultrasound Report ---
PROCEDURE: Pelvic w/Transvaginal INDICATIONS: ABD PAIN,OTHER INTRA-ABDOMINAL AND PELVIC SWELLING TECHNIQUE: Real-time scanning was performed of the pelvic organs, with image documentation. Additional endovagi nal scanning was necessary due to incomplete visualization of the adnexal and endometrial structures by transabdominal scanning. COMPARISON: None. FINDINGS: Transabdominal scanning: Limited scanning through the kidneys shows no hydronephrosis. No pathologi c free abdominal or pelvic fluid. Endovaginal scanning: Uterus: Uterus is normal in size at 5.0 x 2.5 x 3.5 cm. The endometrium measures 2.1 mm in combined thickness. A cyst is noted within the lower uterine segment which measures 0.7 x 0.5 x 0.7 cm. Ovaries: The right ovary is not visualized. The left ovary measures 0.9 x 0.9 x 0.6 cm. IMPRESSION: 1. Overall unremarkable pelvic ultrasound. Simple cyst is noted within the lower uterine segment whic h may represent a nabothian cyst. Reviewed by: Melissa Cui MD on 03/07/2020 5:42 PM PST Approved by: Melissa Cui MD on 03/07/2020 5:42 PM PST Station ID: [id number]
== END 2020-03-07 06:50 | disposition home or self-care (01) ==
LOC: DI 06:49
PROVIDERS: ATTEND Physician Assistant
DX: K76.0 Fatty (change of) liver, not elsewhere classified (principal); N85.8 Other specified noninflammatory disorders of uterus
CPT/HCPCS: 76700; 76830; 76856

== ENCOUNTER 2020-07-27 14:58 | Outpatient (CLI) | payer MEDICARE, OTHER ==
--- NOTE | 2020-07-28 07:47 | Mammography Report ---
BILATERAL DIGITAL SCREENING MAMMOGRAM 3D/2D: 07/27/2020 CLINICAL: Routine screening. Comparison is made to exams dated: 02/18/2017 mammogram, 03/26/2018 mammogram, 02/02/2016 mammogram, 11/29/2014 mammogram, 12/12/2011 mammogram, and 10/23/2010 mammogram - [facility]. The tissue of both breasts is predominantly fatty. No significant masses, calcifications, or other findings are seen in either breast. There has been no significant interval change. IMPRESSION: NEGATIVE There is no mammographic evidence of malignancy. A 1 year screening mammogram is recommended. This exam was interpreted at Station ID: [id number]. NOTE: For mammograms, a report in lay terms will be sent to the patient. Approximately 15% of breast malignancies will not be visualized mammographically. In the management of a palpable breast mass, a negative mammogram must not discourage biopsy of a clinically suspicious lesion. Electronically Signed By: Jason Cantu M.D., jr/enrico:07/27/2020 16:30:59 ACR BI-RADS Category 1: Negative 3341F PARENCHYMAL PATTERN: (F) - The breast(s) demonstrate(s) diffuse fatty replacement. BI-RADS CATEGORY: (1) - 1 RECOMMENDATION: (ANNUAL) - Recommend routine annual screening mammography. [id number] 1 year screening LATERALITY: (B)
== END 2020-07-27 14:59 | disposition home or self-care (01) ==
LOC: DI 14:58
PROVIDERS: ATTEND Physician Assistant
DX: Z12.31 Encounter for screening mammogram for malignant neoplasm of breast (principal)

== ENCOUNTER 2021-07-20 13:01 | Outpatient (CLI) | payer MEDICARE, OTHER ==
--- NOTE | 2021-07-20 13:38 | CT Report ---
PROCEDURE: HEAD WO INDICATIONS: HEAD INJURY TECHNIQUE: Noncontrast 4.5 mm thick angled axial sections acquired from the foramen magnum to the vertex. For r adiation dose reduction, the following was used: automated exposure control, adjustment of mA and/or kV according to patient size. COMPARISON: None. FINDINGS: Image quality: Excellent. CSF spaces: Basal cisterns are patent. No extra-axial fluid collections. Ventricles are normal in size and shape. Subcortical and periventricular hypodensities are consistent with microvascular ische lizeth disease and age-related cerebral volume loss. Brain: No midline shift. No intracranial masses or hemorrhage. Gonzalez-white matter interface is norm al. Skull and face: Calvarium and visualized facial bones are intact, without suspicious lesions. Sinuses: There is mucosal thickening of the maxillary sinuses. Visualized sinuses and mastoids are c lear. IMPRESSION: 1. No acute intracranial abnormality. 2. Microvascular ischemic disease and age-related cerebral volume loss. Reviewed by: Clive Willis on 07/20/2021 1:37 PM PDT Approved by: Clive Willis on 07/20/2021 1:37 PM PDT Station ID: [id number]
== END 2021-07-20 13:02 | disposition home or self-care (01) ==
LOC: DI 13:01
PROVIDERS: ATTEND Nurse Practitioner Family
DX: S09.90XA Unspecified injury of head, initial encounter (principal); G31.89 Other specified degenerative diseases of nervous system; I67.82 Cerebral ischemia

== ENCOUNTER 2022-05-30 11:23 | Outpatient (CLI) | payer MEDICARE, OTHER ==
--- NOTE | 2022-05-31 09:28 | Mammography Report ---
BILATERAL DIGITAL SCREENING MAMMOGRAM 3D/2D: 05/30/2022 CLINICAL: Routine screening. Comparison is made to exams dated: 07/27/2020 mammogram, 03/26/2018 mammogram, 02/18/2017 mammogram, 02/02/2016 mammogram, 11/29/2014 mammogram, and 10/29/2013 mammogram - [facility]. Both breasts are heterogeneously dense, which may obscure small masses (category c / 51-75% glandular tissue). There are benign vascular calcifications in both breasts. No significant masses, calcifications, or other findings are seen in either breast. There has been no significant interval change. IMPRESSION: BENIGN There is no mammographic evidence of malignancy. A 1 year screening mammogram is recommended. Based on the Tyrer Cuzick model (a risk assessment model) the patients lifetime risk is 0.7% and her 10 year risk is 0.0%. According to the ACR, ACS, and NCCN guidelines, an annual breast MRI exam alex g with mammogram is recommended if the patients lifetime risk is 20% or greater. This exam was interpreted at Station ID: [id number]. NOTE: For mammograms, a report in lay terms will be sent to the patient. Approximately 15% of breast malignancies will not be visualized mammographically. In the management of a palpable breast mass, a negative mammogram must not discourage biopsy of a clinically suspicious lesion. Electronically Signed By: Melissa rodney/enrico:05/30/2022 16:51:47 ACR BI-RADS Category 2: Benign Finding(s) 3342F PARENCHYMAL PATTERN: (D) - The breast(s) demonstrate(s) heterogeneously dense fibroglandular parenchy ma. BI-RADS CATEGORY: (2) - 2 RECOMMENDATION: (ANNUAL) - Recommend routine annual screening mammography. [id number] 1 year screening LATERALITY: (B)
== END 2022-05-30 11:24 | disposition home or self-care (01) ==
LOC: DI 11:23
DX: Z12.31 Encounter for screening mammogram for malignant neoplasm of breast (principal)

== ENCOUNTER 2022-10-02 10:04 | Outpatient (CLI) | payer MEDICARE, OTHER ==
--- NOTE | 2022-10-02 12:37 | DEXA Report ---
PROCEDURE: Dexa Spine and/or Hip INDICATIONS: OSTEOPOROSIS TECHNIQUE: Dual energy x-ray absorptiometry (DXA) was performed on a Hubs1 System. Regions measur ed are the AP Spine, femoral neck, and if needed forearm. COMPARISON: 04/02/2018 FINDINGS: Lumbar Spine: Bone Mineral Density 1.114 g/cm/cm,T score -0.4. Normal. Not evaluated previously. Left Femoral Neck: Bone Mineral Density 0.742 g/cm/cm, T score -2.1. Osteopenia. Previous T score -1.9. Left Hip: Bone Mineral Density 0.798 g/cm/cm,T score -1.7. Osteopenia. Previous T score -1.7. There has been no statistically significant change in bone mineral density since the prior study. Left Forearm: Bone Mineral Density 0.710 g/cm/cm, T score -1.9. Osteopenia. Previous T score -2.7. Since the most r ecent prior study, there has been a statistically significant increase in bone mineral density by 11. 1 percent. (T score greater or equal to -1.0: NORMAL) (T score from -1.1 to -2.4: OSTEOPENIA) (T score less than or equal to -2.5 to: OSTEOPOROSIS) Impression: By WHO criteria, this patient has low bone density (osteopenia). Patients with diagnosis of osteoporosis or osteopenia should have regular bone mineral density assess ment. For those eligible for Medicare, routine testing is allowed once every 2 years. Testing frequ ency can be increased for patients who have rapidly progressing disease or for those who are receivin g medical therapy to restore bone mass. Reviewed by: Evangelista Diehl MD on 10/02/2022 12:36 PM PDT Approved by: Evangelista Diehl MD on 10/02/2022 12:36 PM PDT Station ID: [id number]
== END 2022-10-02 10:05 | disposition home or self-care (01) ==
LOC: DI 10:04
PROVIDERS: ATTEND Nurse Practitioner Family
DX: M85.89 Other specified disorders of bone density and structure, multiple sites (principal)

== ENCOUNTER 2022-10-18 14:21 | Outpatient (CLI) | payer MEDICARE, OTHER | END 2022-10-18 14:22 | disposition home or self-care (01) | LOC: LAB 14:21 | PROVIDERS: ATTEND Nurse Practitioner | DX: N39.41 Urge incontinence (principal) | CPT/HCPCS: 87086 ==

== ENCOUNTER 2023-05-19 13:43 | Outpatient (CLI) | payer MEDICARE, OTHER | END 2023-05-19 13:44 | disposition home or self-care (01) | LOC: LAB 13:43 | DX: N32.81 Overactive bladder (principal); R35.0 Frequency of micturition; N39.41 Urge incontinence | CPT/HCPCS: 87086 ==

== ENCOUNTER 2023-06-24 14:11 | Emergency (ER) | payer MEDICARE, OTHER ==
--- NOTE | 2023-06-24 14:43 | ED Physician Documentation ---
PD HPI Fall - Stated complaint Stated Complaint: GLF/CHEST PX - Chief complaint Chief Complaint: Cardiac - History obtained from History obtained from: Patient - History of Present Illness Mechanism of injury: Tripped (fell walking dog on Saturday and landed forward onto chest. Not hurting too badly at the time, but got worse today. Sharp pain sternal and anterior chest area.) Fall distance: Standing position Timing - onset: How many days ago (3) Injury(ies) location: Chest. No: Head, Neck, Abdomen Quality of pain: Pain, Sharp Associated symptoms: No: LOC, AMS, Dyspnea Symptoms improve with: Rest Worsens with: Movement, Palpation, Other (breathing deeply) Contributing factors: No: Anticoagulated Similar symptoms before: Has not had sx before (she does not recall major i njuries of chest (fractures).) Review of Systems Constitutional: denies: Fever, Chills Nose: denies: Rhinorrhea / runny nose, Congestion Throat: denies: Sore throat Respiratory: denies: Cough GI: denies: Abdominal Pain, Nausea, Vomiting Musculoskeletal: denies: Extremity pain, Extremity swelling PD PAST MEDICAL HISTORY - Past Medical History Past Medical History: Yes Cardiovascular: High cholesterol, Angina Respiratory: None Endocrine/Autoimmune: None GI: GERD, Hiatal hernia, Other : Other HEENT: None Psych: Depression, Anxiety Musculoskeletal: Osteoporosis, Chronic back pain Derm: Other - Past Surgical History Past Surgical History: Yes General: Bowel surgery, Colonoscopy Ortho: Other - Present Medications Home Medications: Ambulatory Orders Medication Instructions Recorded Confirmed Sertraline HCl 75 mg PO DAILY 02/12/13 10/22/16 Multivitamin [Theragran] 1 tab PO DAILY 05/21/16 06/24/23 Acetaminophen with Codeine 1 each PO Q4HR PRN #45 tablet 09/25/16 06/24/23 [Acetaminophen-Cod #3 Tablet] Docusate Sodium 250Mg Capsule 250 mg PO DAILY #60 capsule 09/25/16 10/22/16 [Colace 250Mg Capsule] HYDROcod/ACETAM 5/325 [[place] 5/325] 1 ea PO Q6H PRN #15 tablet 06/24/23 Meloxicam [Mobic] 7.5 mg PO BID 10 Days #20 tablet 06/24/23 QUEtiapine [SEROquel] 1 tab PO DAILY 06/24/23 06/24/23 - Allergies Allergies/Adverse Reactions: Allergies Allergy/AdvReac Type Severity Reaction Status Date / Time codeine Allergy Unknown Verified 06/24/23 14:23 morphine Allergy Nausea Verified 06/24/23 14:23 Sulfa (Sulfonamide Allergy Headache Verified 06/24/23 14:23 Antibiotics) caffeine AdvReac Anxiety Verified 06/24/23 14:23 - Social History Does the pt smoke?: No Smoking Status: Never smoker Does the pt drink ETOH?: Yes Does the pt have substance abuse?: No - POLST Patient has POLST: No PD ED PE NORMAL - Vitals Vital signs reviewed: Yes - General General: Alert and oriented X 3, No acute distress, Well developed/nourished - HEENT HEENT: Atraumatic - Neck Neck: Supple, no meningeal sign, No adenopathy - Cardiac Cardiac: RRR, No murmur - Respiratory Respiratory: No respiratory distress, Clear bilaterally, Other (tender parasternal area but not on sternum itself. No noted crepitance nor deformity. No bruising on chestwall. ) - Abdomen Abdomen: Soft, Non tender - Derm Derm: Normal color, Warm and dry - Extremities Extremities: No tenderness to palpate, Normal ROM s pain, No edema, No calf tenderness / cord - Neuro Neuro: Alert and oriented X 3, No motor deficit, Normal speech Results - Vitals Vitals: Oxygen O2 Source Room air - EKG (time done) 144:22 EKG releavant findings:: EKG personally interpreted by author of this note. Relevant findings are: Rate: Rate (enter#) (76) Rhythm: NSR [place]: Normal Intervals: Normal [place] QRS: Normal Ischemia: Normal ST segments Compare to prior EKG: Unchanged from prior EKG (09/20/2016) - Labs Labs: Laboratory Tests 06/24/23 06/24/23 14:40 14:40 WBC 11.0 H RBC 4.24 Hgb 14.3 Hct 44.0 MCV 103.8 H MCH 33.7 H MCHC 32.5 RDW 13.2 Plt Count 348 MPV 10.0 Neut # (Auto) 8.0 H Lymph # (Auto) 1.7 [place] # (Auto) 0.7 Eos # (Auto) 0.5 Baso # (Auto) 0.1 Absolute Nucleated RBC 0.00 Nucleated RBC % 0.0 Sodium 138 Potassium 4.7 H Chloride 104 Carbon Dioxide 27 Anion Gap 7.0 BUN 22 H Creatinine 0.8 Estimated GFR (MDRD) 69 L Glucose 106 H Calcium 9.3 Total Bilirubin 0.7 AST 26 ALT 15 Alkaline Phosphatase 64 Troponin I High Sens 12.0 Total Protein 7.5 Albumin 4.4 Globulin 3.1 Albumin/Globulin Ratio 1.4 Lipase 35 - Rads (name of study) chest xray Relevant Findings:: Prelim report reviewed (enlarged heart, mild vascular congestion. ), EMP independent interpretation of test chest CT Relevant Findings:: Prelim report reviewed (no acute injury. old healed sternal fracture. ), EMP independent interpretation of test PD Medical Decision Making - ED course Complexity details: reviewed results (CT chest showed old appearing sternal fracture which pt is not aware of in the past. But does not look new. No new injuries noted. ), re-evaluated patient (pain improved with some IV meds here. ), considered differential (chest pain after fall, but delay in worst pain. Consider hematoma, fracture, vascular process, effusion, PTX. CXR is normal enough, but would not be accurate enough for some of these. Will get CT. ), d/w patient Reviewed Lab Results: ECG and labs are normal without indications for heart injury. No lung injury. No hematomas or such in chest area. Departure - Departure Disposition: 01 Home, Self Care Clinical Impression: Chest pain, mid sternal, History of recent fall Condition: Stable Prescriptions: Meloxicam [Mobic] 7.5 mg PO BID 10 Days #20 tablet HYDROcod/ACETAM 5/325 [[place] 5/325] 1 ea PO Q6H PRN #15 tablet PRN Reason: Pain Comments: Your CT scan did not show any acute injuries. You can still be sore and painful in that area. I would suggest some anti-inflammatories initially combined with Tylenol 500 to 650 mg 4 times a day. To that add hydrocodone every 4-6 hours if needed. It is sent your prescriptions to the [facility] pharmacy. Activity as tolerated. Recheck if not improved over the next several days to week. Forms: PCP List Discharge Date/Time: 06/24/23 17:54
[2023-06-24 15:09] LABS: BASOPHILS # (AUTO) 0.1 10^3/uL (0.0-0.1); BASOPHILS % (AUTO) 0.5 %; EOSINOPHILS # (AUTO) 0.5 10^3/uL (0.0-0.7); EOSINOPHILS % (AUTO) 4.9 %; HGB - HEMOGLOBIN 14.3 g/dL (12.0-16.0); LYMPHOCYTES # (AUTO) 1.7 10^3/uL (1.5-3.5); LYMPHOCYTES % (AUTO) 15.7 %; MEAN CORPUSCULAR HEMOGLOBIN 33.7 pg (27.0-31.0); MEAN CORPUSCULAR HGB CONC 32.5 g/dL (32.0-36.0); MEAN CORPUSCULAR VOLUME 103.8 fL (81.0-99.0); MONOCYTES # (AUTO) 0.7 10^3/uL (0.0-1.0); MONOCYTES % (AUTO) 6.3 %; NEUTROPHILS % (AUTO) 72.3 %; PLT - PLATELET COUNT 348 10^3/uL (130-450); RED BLOOD COUNT 4.24 10^6/uL (4.20-5.40); RED CELL DISTRIBUTION WIDTH 13.2 % (12.0-15.0)
[2023-06-24] MEDS: KETOROLAC 15 MG/ML VIAL IVP STA (15:16)
[2023-06-24] MEDS: fentaNYL 100 MCG/2 ML VIAL IVP STA (15:17)
[2023-06-24 15:24] LABS: ALBUMIN 4.4 g/dL (3.2-5.5); ALBUMIN/GLOBULIN RATIO 1.4 (1.0-2.2); BILIRUBIN,TOTAL 0.7 mg/dL (0.2-1.0); CALCIUM 9.3 mg/dL (8.5-10.3); CREATININE 0.8 mg/dL (0.6-1.3); POTASSIUM 4.7 mmol/L (3.5-4.5); TOTAL PROTEIN 7.5 g/dL (6.4-8.9)
[2023-06-24] MEDS ORDERED: iohexoL-300 100 ML VIAL ONE (15:38)
--- NOTE | 2023-06-24 15:40 | XRAY Report ---
PROCEDURE: Chest 1V INDICATIONS: Chest pain TECHNIQUE: One view of the chest was acquired. COMPARISON: None. FINDINGS: Surgical changes and devices: Partially visualized lumbar spinal hardware. Lungs and pleura: No pleural effusions or pneumothorax. Prominence of interstitial markings. Mediastinum: Mediastinal contours appear normal. Heart size is mildly enlarged. Bones and chest wall: No suspicious bony lesions. Overlying soft tissues appear unremarkable. IMPRESSION: Mild cardiomegaly with prominent interstitial markings may represent pulmonary edema, recommend corre lation with volume status. No focal pulmonary consolidations. Reviewed by: Dimitry Tanner MD on 06/24/2023 3:39 PM PST Approved by: Dimitry Tanner MD on 06/24/2023 3:39 PM PST Station ID: [id number]
--- NOTE | 2023-06-24 16:28 | CT Report ---
PROCEDURE: Chest W INDICATIONS: fall with anterior chest pain CONTRAST: 100mL Omni 300 TECHNIQUE: After the administration of intravenous contrast, a CT scan of the chest was performed. Images were recorded and evaluated at appropriate window settings. Reformats: axial MIP of the chest, coronal and sagittal. For radiation dose reduction, the following was used: automated exposure control, adjustme nt of mA and/or kV according to patient size. COMPARISON: None. FINDINGS: Image quality: Diagnostic. Chest wall and lower neck: No thyroid nodule which requires sonographic follow up. No axillary or sup raclavicular adenopathy by size. Lungs and pleura: No consolidation. No pleural effusions. No pneumothorax. No suspicious pulmonary n odules which require follow up. Mediastinum: Heart size is enlarged. No pericardial effusion. No large vessel abnormality. No mediast inal adenopathy by size criteria. Mild coronary calcifications for age. Bones: Degenerative disc disease. Healed sternal body fracture. No displaced rib fractures. Upper Abdomen: Unremarkable. IMPRESSION: No displaced fracture or pneumothorax. Healed sternal body fracture. Reviewed by: Konstantin Gomez MD on 06/24/2023 4:26 PM PST Approved by: Konstantin Gomez MD on 06/24/2023 4:26 PM PST Station ID: [id number]
[2023-06-24 16:32] VITALS: BP 122/84
[2023-06-24] MEDS: iohexoL-300 100 ML VIAL IVP ONE (16:44)
[2023-06-24] MEDS: ACETAMINOPHEN 325 MG TABLET PO STA (17:28)
[2023-06-24] MEDS: HYDROmorphone 0.5 MG/0.5 ML SYRINGE IVP STA (17:29)
[2023-06-24 17:55] VITALS: O2SAT 98
== END 2023-06-24 17:54 | disposition home or self-care (01) ==
LOC: ED 14:11
DX: R07.89 Other chest pain (principal); W01.0XXA Fall on same level from slipping, tripping and stumbling without subsequent striking against object, initial encounter; Y93.K1 Activity, walking an animal; E78.00 Pure hypercholesterolemia, unspecified; Z79.899 Other long term (current) drug therapy
CPT/HCPCS: 36415; 71045; 71260; 80053; 83690; 84484; 85025; 93005; 96374; 96375; 99284; A9270; J1170; Q9967

== ENCOUNTER 2023-09-03 09:36 | Emergency (ER) | payer MEDICARE, OTHER ==
[2023-09-03 09:55] VITALS: O2SAT 100
--- NOTE | 2023-09-03 09:55 | ED Physician Documentation ---
PD HPI BACK PAIN - Stated complaint Stated Complaint: BACK PX - Chief complaint Chief Complaint: Back Pain - History obtained from History obtained from: Patient - History of Present Illness Timing - onset: How many days ago (2-3) Timing - duration: Days (2-3) Timing - details: Abrupt onset (onset of lower back pain while bending over and gardening/weeeding. No forceful mechanism but history of prior back surgeruyes years ago and pt concerned about the structure of these. Pain has persisted with movement and activity, mostly left paralumbar area. No weakness/numbness nor incontinence.), Still present Location: Lower, Left Quality: Pain, Spasm Associated symptoms: No: Fever, Weakness, Incontinent of urine, Incontinent of stool Worsened by: Movement Contributing factors: Lifting, Twisting. No: Trauma, Anticoagulated Similar symptoms before: Has not had sx before (ongoing low back pain at times treated with just Tylenol. No continued nor severe pains, until this current episode associated with gardening and some other activites (stretching and swimming that she does reguarly).) Recently seen: Not recently seen Review of Systems Constitutional: denies: Fever, Chills Skin: denies: Rash, Lesions Musculoskeletal: reports: Back pain. denies: Neck pain Neurologic: denies: Focal weakness, Numbness PD PAST MEDICAL HISTORY - Past Medical History Past Medical History: Yes Cardiovascular: High cholesterol, Angina Respiratory: None Endocrine/Autoimmune: None GI: GERD, Hiatal hernia, Other [employer]: None : Incontinence, Other HEENT: None Psych: Depression, Anxiety Musculoskeletal: Osteoporosis, Chronic back pain Derm: Other - Past Surgical History Past Surgical History: Yes General: Bowel surgery, Colonoscopy Ortho: Spine surgery, Other - Present Medications Home Medications: Ambulatory Orders Medication Instructions Recorded Confirmed Sertraline HCl 75 mg PO DAILY 02/12/13 09/03/23 Multivitamin [Theragran] 1 tab PO DAILY 05/21/16 09/03/23 QUEtiapine [SEROquel] 12.5 mg PO HS 06/24/23 09/03/23 Docusate Sodium 250Mg Capsule 250 mg PO DAILY PRN 09/03/23 09/03/23 [Colace 250Mg Capsule] HYDROcod/ACETAM 5/325 [[place] 5/325] 1 ea PO Q6H PRN #14 tablet 09/03/23 Lidocaine Patch 5% [Lidoderm Patch] 1 patch TOP DAILY PRN #10 patch 09/03/23 Meloxicam [Mobic] 7.5 mg PO BID 10 Days #20 tablet 09/03/23 methocarbamoL [Robaxin] 500 mg PO TID PRN #20 tablet 09/03/23 - Allergies Allergies/Adverse Reactions: Allergies Allergy/AdvReac Type Severity Reaction Status Date / Time codeine Allergy Unknown Verified 09/03/23 09:41 morphine Allergy Nausea Verified 09/03/23 09:41 Sulfa (Sulfonamide Allergy Headache Verified 09/03/23 09:41 Antibiotics) caffeine AdvReac Anxiety Verified 09/03/23 09:41 - Social History Does the pt smoke?: No Smoking Status: Former smoker Does the pt drink ETOH?: Yes ETOH Use: Wine Does the pt have substance abuse?: No - Immunizations Immunizations are current?: Yes - POLST Patient has POLST: No PD ED PE NORMAL - Vitals Vital signs reviewed: Yes - General General: Alert and oriented X 3, Well developed/nourished, Other (appears in considerable pain with sitting up and rolling. Not as much with lying, though raised back was better than flat for her.) - Back Back: No CVA TTP, No spinal TTP (bur is tender mainly left paralumbar longisimus muscle area without redness, rash nor sores. There is a focal area most tender in muscle that does cause surrounding pain. ) - Derm Derm: Normal color, Warm and dry, No rash - Neuro Neuro: Alert and oriented X 3, No motor deficit, No sensory deficit, Other Results - Vitals Vitals: Oxygen O2 Source Room air - Rads (name of study) lumbar CT Relevant Findings:: Prelim report reviewed (post surgical fusion changes with increased spondylotic changes since 2013. General arthritic. Some neural foraminal narrowing generally. No acute fractures/findings. ) PD Medical Decision Making - ED course Complexity details: reviewed results (CT with arthritic and post surgical changes. No acute fracture nor spondylolisthesis. ), re-evaluated patient (improved pain level with meds here in ED of just oral (she did not want IM meds (aside from a trigger point injection at most tender muscular paralumbar mitul, which she was in favor of ("getting right to the spot"). ), considered differential (mechanism would seem strain more likely and tender/pain area is adjacent to spine and not central. Still was abrupt with bending and pulling(jerking) movement of weeding, and could consider compression fracture or disc out. Reasonable for CT to ensure no acute bony process. ), d/w patient Departure - Departure Disposition: 01 Home, Self Care Clinical Impression: Acute myofascial strain of lumbar region, Status post lumbar surgery Condition: Stable Record reviewed to determine appropriate education?: Yes Instructions: ED Sprain Strain Lumbar Prescriptions: Lidocaine Patch 5% [Lidoderm Patch] 1 patch TOP DAILY PRN #10 patch PRN Reason: pain Meloxicam [Mobic] 7.5 mg PO BID 10 Days #20 tablet HYDROcod/ACETAM 5/325 [[place] 5/325] 1 ea PO Q6H PRN #14 tablet PRN Reason: Pain methocarbamoL [Robaxin] 500 mg PO TID PRN #20 tablet PRN Reason: Spasms Comments: I did do an injection with some lidocaine as well as a long-acting steroid anti- inflammatory into the area that was tender and spasmed in the muscle. Hopefully this will be helpful locally. In addition I would go for some heat and gentle stretching to the area. Fluid and simple movements such as stretching and light activity as well as swimming can be useful in the short-term. I would avoid bending and more abrupt use of the muscles such as the gardening for the short time until this is feeling better. Locally to the area can apply heat to help with spasms and also some lidocaine patches. In addition I would have you take a long-acting anti-inflammatory meloxicam twice daily with food for the next 7 to 10 days. Add methocarbamol muscle relaxant to reduce spasming. For pain then add Tylenol 500 to 650 mg 4 times daily. I did prescribe some hydrocodone which is a opiate pain medicine to use periodically if needed for worse pain. There is a feedback of pain causing spasms which causes more pain so it is reasonable to treat the pain in the short-term as needed. The opiate pain medicine would be the addition on top of the other medications if needed and intended short-term. I sent your prescriptions to your local pharmacy. Follow-up with your primary care if not improved well over the next several days to week. Sometimes back strain like this can even last for a couple of weeks but it is good to follow-up if it is not improving readily. I am prescribing a short course of narcotic pain medication for you. These are potentially dangerous and addictive medications that should be used carefully. These medications may constipate you. Take an [id number] stool softener such as docusate twice daily with plenty of water while taking these medications. If you go 24 hours without a bowel movement, take [id number] MiraLAX, per package instructions. Do not drink or drive while taking these medications. If you received narcotic or sedating medications while in the emergency department do not drive for 24 hours. Store this medication in a safe, secure place and out of reach of children. It is a violation of federal law to give or sell this medication to another person or to use in a manner other than prescribed. The ED will not refill narcotic prescriptions, including prescriptions lost or stolen. You can dispose of unwanted medications at the [facility]'s office or at several pharmacies such as [facility]. Discharge Date/Time: 09/03/23 12:29
[2023-09-03] MEDS: HYDROcod/ACETAM 5/325 MG TABLET PO STA (10:27)
[2023-09-03] MEDS: LIDOCAINE 1%-EPI 1:100000 20 ML MDV SUBQ STA (10:28)
[2023-09-03] MEDS: methocarbamoL 500 MG TABLET PO STA (10:28)
[2023-09-03] MEDS: TRIAMCINOLONE 40 MG/ML VIAL IM STA (10:29)
--- NOTE | 2023-09-03 11:21 | CT Report ---
PROCEDURE: Lumbar Spine WO INDICATIONS: back pain when gardening, abrupt TECHNIQUE: Noncontrast 3 mm thick sections acquired from the T12 level to the sacrum. Sagittal and coronal refo rmats were constructed. For radiation dose reduction, the following was used: automated exposure co ntrol, adjustment of mA and/or kV according to patient size. COMPARISON: 02/12/2013 FINDINGS: Image quality: Diagnostic Bones: L4-L5 to iliac bone posterior fusion hardware is present. 1.6 cm of L5 on S1 anterolisthesis, also seen previously. Vertebral body heights are otherwise well-maintained. No traumatic subluxation. Moderate spondylosis, progressed since 2012. No high-grade thecal sac stenosis. Multifocal mild and moderate areas of neural foraminal or thecal s ac narrowing are present. Soft tissues: Unremarkable. Atherosclerotic calcifications are seen. IMPRESSION: Progressed, now moderate spondylotic changes compared to 2012, with suspected areas of mild and moder ate neural foraminal and thecal sac narrowing. Consider MRI to further evaluate if needed. L4-L5 to iliac bone fusion hardware. L5-S1 anterolisthesis again seen. No acute appearing height loss. Reviewed by: Jose Boykin MD on 09/03/2023 11:19 AM PDT Approved by: Jose Boykin MD on 09/03/2023 11:19 AM PDT Station ID: [id number]
[2023-09-03 12:30] VITALS: BP 130/80
== END 2023-09-03 12:29 | disposition home or self-care (01) ==
LOC: ED 09:36
DX: S39.012A Strain of muscle, fascia and tendon of lower back, initial encounter (principal); X50.1XXA Overexertion from prolonged static or awkward postures, initial encounter; Y93.H2 Activity, gardening and landscaping; Z98.1 Arthrodesis status; Z87.891 Personal history of nicotine dependence
CPT/HCPCS: 64450; 72131; 99284; A9270

== ENCOUNTER 2023-10-05 08:00 | Outpatient (CLI) | payer MEDICARE, OTHER ==
[2023-10-05 15:44] LABS: INFLUENZA A- RESP PCR PANEL NOT DETECTED; INFLUENZA B - RESP PCR PANEL NOT DETECTED; RSV- RESP PCR PANEL NOT DETECTED; SARS-CoV-2 -RESP PCR PANEL NOT DETECTED
== END 2023-10-05 23:59 | disposition home or self-care (01) ==
LOC: LAB 08:00
PROVIDERS: ATTEND Emergency Medicine
DX: J18.9 Pneumonia, unspecified organism (principal)
CPT/HCPCS: 87637

== ENCOUNTER 2023-10-05 14:22 | Outpatient (CLI) | payer MEDICARE, OTHER ==
--- NOTE | 2023-10-07 01:22 | XRAY Report ---
PROCEDURE: Chest 2V INDICATIONS: ASTHMATIC BRONCHITIS TECHNIQUE: 2 views of the chest were acquired. COMPARISON: Chest CT and radiographs 06/24/2023 FINDINGS: Surgical changes and devices: Lumbar spinal fusion hardware is partially imaged.. Lungs and pleura: No pleural effusions or pneumothorax. Bilateral interstitial prominence. No acute consolidation. Mediastinum: Mediastinal contours appear normal. Heart size is normal. Bones and chest wall: No suspicious bony lesions. Overlying soft tissues appear unremarkable. IMPRESSION: Bilateral interstitial prominence may be chronic versus secondary to an atypical or viral pneumonia o r mild edema. Reviewed by: Evangelista Cadet MD on 10/07/2023 1:20 AM PDT Approved by: Evangelista Cadet MD on 10/07/2023 1:20 AM PDT Station ID: [id number]
== END 2023-10-05 14:23 | disposition home or self-care (01) ==
LOC: DI 14:22
PROVIDERS: ATTEND Emergency Medicine
DX: J45.909 Unspecified asthma, uncomplicated (principal); J18.9 Pneumonia, unspecified organism
CPT/HCPCS: 87637

== ENCOUNTER 2023-11-25 13:01 | Outpatient (CLI) | payer MEDICARE, OTHER ==
--- NOTE | 2023-11-26 11:53 | Mammography Report ---
BILATERAL DIGITAL SCREENING MAMMOGRAM 3D/2D: 11/25/2023 CLINICAL: Routine screening. Comparison is made to exams dated: 07/27/2020 mammogram, 03/26/2018 mammogram, and 05/30/2022 mammogra m - [facility]. Both breasts are heterogeneously dense, which may obscure small masses (category c / 51-75% glandular tissue). There are benign vascular calcifications in both breasts. No significant masses, calcifications, or other findings are seen in either breast. There has been no significant interval change. IMPRESSION: BENIGN There is no mammographic evidence of malignancy. A 1 year screening mammogram is recommended. Based on the Tyrer Cuzick model (a risk assessment model) the patient's lifetime risk is 0.4% and her 10 year risk is 0.0%. According to the ACR, ACS, and NCCN guidelines, an annual breast MRI exam alex g with mammogram is recommended if the patient's lifetime risk is 20% or greater. This exam was interpreted at Station ID: [id number]. NOTE: For mammograms, a report in lay terms will be sent to the patient. Approximately 15% of breast malignancies will not be visualized mammographically. In the management of a palpable breast mass, a negative mammogram must not discourage biopsy of a clinically suspicious lesion. Electronically Signed By: Evangelista [email or web address]/enrico:11/26/2023 10:09:15 letter sent: No_Letter ACR BI-RADS Category 2: Benign Finding(s) 3342F PARENCHYMAL PATTERN: (D) - The breast(s) demonstrate(s) heterogeneously dense fibroglandular cherie arriaza. BI-RADS CATEGORY: (2) - 2 RECOMMENDATION: (ANNUAL) - Recommend routine annual screening mammography. [id number] 1 year screening LATERALITY: (B)
== END 2023-11-25 13:02 | disposition home or self-care (01) ==
LOC: DI 13:01
PROVIDERS: ATTEND Nurse Practitioner Family
DX: Z12.31 Encounter for screening mammogram for malignant neoplasm of breast (principal); R92.333 Mammographic heterogeneous density, bilateral breasts; R92.1 Mammographic calcification found on diagnostic imaging of breast